=== PATIENT | male | born 1985 | race Caucasian/White ===

== ENCOUNTER → 2019-12-01 | Outpatient (CLI) | payer OTHER ==
[2019-12-01 13:17] LABS: BASO # 0.1 x10^3/uL (0.0-0.2); BASO % 1 % (0-3); EOS # 0.2 x10^3/uL (0.0-0.7); EOS % 3 % (0-3); HEMATOCRIT 41.9 % (39.0-53.0); LYMPH # 2.5 x10^3/uL (1.0-4.8); LYMPH % 33 % (24-48); MEAN CORPUSCULAR HEMOGLOBIN 31 pg (25-35); MEAN CORPUSCULAR HGB CONC 33 g/dL (31-37); MEAN CORPUSCULAR VOLUME 91 fL (79-100); MONO # 0.6 x10^3/uL (0.0-1.1); MONO % 8 % (0-9); NEUT # 4.2 x10^3uL (1.8-7.7); NEUT % 56 % (31-73); PLATELET COUNT 291 x10^3/uL (140-400); RED CELL DISTRIBUTION WIDTH 13.9 % (11.5-14.5); WHITE BLOOD COUNT 7.6 x10^3/uL (4.0-11.0)
[2019-12-01 13:32] LABS: ALBUMIN 4.2 g/dL (3.4-5.0); ALBUMIN/GLOBULIN RATIO 1.4 (1.0-1.7); CREATININE 1.2 mg/dL (0.7-1.3); GFR 68.5; POTASSIUM 4.1 mmol/L (3.5-5.1); TOTAL BILIRUBIN 0.6 mg/dL (0.2-1.0); TOTAL PROTEIN 7.3 g/dL (6.4-8.2)
== END | disposition home or self-care (01) ==
LOC: EEVIPCON 12:59 → SPEC 12:59
DX: Z00.00 Encounter for general adult medical examination without abnormal findings (principal); E78.1 Pure hyperglyceridemia
CPT/HCPCS: 36415; 80053; 83880; 85025

== ENCOUNTER 2020-08-10 02:45 | Observation (INO) | payer OTHER ==
[~2020-08-10] VITALS: Ht 175.3 cm; Wt 83.4 kg
[2020-08-10] MEDS ORDERED: ONDANSETRON PF 4 MG/2 ML VIAL. ONE (02:49)
[2020-08-10] MEDS ORDERED: IV NORMAL SALINE 1,000ML 1,000 ML IV ONE (03:00)
[2020-08-10] MEDS ORDERED: FAMOTIDINE 20 MG/2 ML VIAL IVP ONE (03:00)
[2020-08-10] MEDS ORDERED: KETOROLAC 15 MG/ML VIAL. IVP ONE (03:00)
[2020-08-10] MEDS ORDERED: ONDANSETRON PF 4 MG/2 ML VIAL. IVP ONE ×3 (03:00→07:00)
[2020-08-10] MEDS ORDERED: HYOSCYAMINE 0.125 MG TAB.RAPDIS PO ONE (03:00)
--- NOTE | 2020-08-10 03:16 | EKG ---
[address] [address] Test Date: 2020-08-10 Test Time: 03:07:50 Pat Name: ROM KIDD Department: Room: Gender: M [employer] Inspector: DORIAN : 1985 Requested By: AKUA REYES Order Number: [id number] Reading MD: Measurements Intervals [place] Rate: 61 P: 25 TX: 166 QRS: 50 QRSD: 92 T: -7 QT: 400 QTc: 404 Interpretive Statements SINUS RHYTHM NORMAL ECG RI6.02 No previous ECG available for comparison
[2020-08-10] MEDS ORDERED: IOHEXOL 300 MG/ML 75 ML VIAL. ONE (03:35)
[2020-08-10] MEDS ORDERED: IOHEXOL 300 MG/ML 75 ML VIAL. IV ONE (03:45)
[2020-08-10] MEDS ORDERED: CONTRAST GIVEN. MC PRN (03:45)
[2020-08-10 03:50] LABS: BASO % 0 % (0-3); EOS % 0 % (0-3); HEMATOCRIT 43.2 % (39.0-53.0); HEMOGLOBIN 14.9 g/dL (13.0-17.5); LYMPH # 1.1 x10^3/uL (1.0-4.8); LYMPH % 10 % (24-48); MEAN CORPUSCULAR HEMOGLOBIN 31 pg (25-35); MEAN CORPUSCULAR HGB CONC 34 g/dL (31-37); MEAN CORPUSCULAR VOLUME 90 fL (79-100); MONO # 0.3 x10^3/uL (0.0-1.1); MONO % 3 % (0-9); NEUT # 9.8 x10^3uL (1.8-7.7); NEUT % 87 % (31-73); PLATELET COUNT 350 x10^3/uL (140-400); RED BLOOD COUNT 4.81 x10^6/uL (4.30-5.70); RED CELL DISTRIBUTION WIDTH 13.1 % (11.5-14.5); WHITE BLOOD COUNT 11.3 x10^3/uL (4.0-11.0)
[2020-08-10 03:57] LABS: BACTERIA,URINE 0 /HPF (0-FEW); BILIRUBIN,URINE NEG (NEG); CLARITY,URINE CLEAR; COLOR,URINE YELLOW; GLUCOSE,URINE NEG (NEG); NITRITE,URINE NEG (NEG); RBC,URINE OCC /HPF (0-2); SQUAMOUS EPITHELIAL CELL,UR OCC /LPF; UROBILINOGEN,URINE 0.2 mg/dL (0.2 mg/dL); WBC,URINE OCC /HPF (0-4)
[2020-08-10 04:00] LABS: CALCIUM 9.4 mg/dL (8.5-10.1); CREATININE 0.8 mg/dL (0.7-1.3); GFR 108.8
--- NOTE | 2020-08-10 04:20 | RAD ---
CT SCAN OF THE ABDOMEN AND PELVIS WITH IV CONTRAST. History: Abdominal pain, history of appendectomy Comparison:None. Procedure: Contiguous axial images of the abdomen and pelvis were performed after the administration of 75 cc o f Omni 300 IV contrast. Oral contrast: No. Findings: The gallbladder appears normal. There is mild wall thickening of the colon without surrounding inflam mation. Liver: Unremarkable Spleen: Unremarkable Pancreas: Unremarkable Adrenal Glands: Unremarkable Kidneys: Unremarkable There is no mass or lymphadenopathy. There is no free air. There is no free fluid. The urinary bladder appears normal. Impression: Pancolitis could be infectious such as pseudomembranous colitis or could be inflammatory such as ulce rative colitis. There is no diverticulitis. There is no air in the wall to suggest ischemic colitis. End impression PQRS Compliance Statement: One or more of the following individualized dose reduction techniques were utilized for this examinat ion: 1. Automated exposure control 2. Adjustment of the mA and/or kV according to patient size 3. Use of iterative reconstruction technique Electronically signed by: Edgar Covarrubias III, MD (08/10/2020 4:18 AM) [facility]
[2020-08-10 04:25] LABS: ALBUMIN 4.7 g/dL (3.4-5.0); ALBUMIN/GLOBULIN RATIO 1.5 (1.0-1.7); TOTAL BILIRUBIN 0.2 mg/dL (0.2-1.0); TOTAL PROTEIN 7.9 g/dL (6.4-8.2)
[2020-08-10] MEDS ORDERED: IV NORMAL SALINE 50ML 50 ML ONE (04:50)
[2020-08-10] MEDS ORDERED: cefTRIAXone SODIUM 1 GM VIAL ONE (04:50)
--- NOTE | 2020-08-10 05:08 | PHYS DOC ---
Past History Past Medical History: No Pertinent History Past Surgical History: Appendectomy Smoking: Non-smoker Alcohol Use: None Drug Use: None General Adult EDM: Chief Complaint: ABDOMINAL PAIN HPI: HPI: 35-year-old male presents with generalized abdominal pain with associated nausea and vomiting that started yesterday. Patient reports has vomited multiple times. Patient is a inmate [facility]. Provider at the facility became concerned that patient with intractable nausea and vomiting and significant abdominal pain and therefore sent him to the ER for further evaluation and treatment. Patient also reports diarrhea. Patient denies known sick contacts. Denies recent antibiotic therapy. Denies history of known irritable bowel disease. Denies trauma. Review of Systems: Review of Systems: Constitutional: Denies fever or chills Eyes: Denies redness or eye pain HENT: Denies nasal congestion or sore throat Respiratory: Denies cough or shortness of breath Cardiovascular: Denies chest pain or palpitations GI: Reports diffuse abdominal pain, nausea, vomiting, and diarrhea : Denies dysuria or hematuria Musculoskeletal: Reports back pain; denies joint pain Integument: Denies rash or skin lesions Neurologic: Denies headache, focal weakness or sensory changes Complete systems were reviewed and found to be within normal limits, except as documented in this note. Current Medications: Current Meds: Current Medications Medications (Trade) Dose Ordered Sig/Willis Start Time Stop Time Status Last Admin Dose Admin Ceftriaxone Sodium 1 gm/ Sodium Chloride 50 ml @ 100 mls/hr 1X ONCE 08/10/20 04:45 08/10/20 05:14 08/10/20 05:00 100 MLS/HR Ceftriaxone Sodium (Rocephin) 1 gm STK-MED ONCE 08/10/20 04:50 08/10/20 04:50 DC Famotidine (Pepcid Vial) 20 mg 1X ONCE 08/10/20 03:00 08/10/20 03:08 DC 08/10/20 03:30 20 MG Fentanyl Citrate (Fentanyl 2ml Vial) 50 mcg 1X ONCE 08/10/20 05:15 08/10/20 05:16 Hyoscyamine (Anaspaz) 0.125 mg 1X ONCE 08/10/20 03:00 08/10/20 03:08 DC 08/10/20 03:30 0.125 MG Info (Do NOT chart on this entry -- for MONITORING) 1 each PRN DAILY PRN 08/10/20 03:45 08/12/20 03:44 Iohexol (Omnipaque 300 Mg/ml) 75 ml STK-MED ONCE 08/10/20 03:35 08/10/20 03:36 DC Ketorolac Tromethamine (Toradol 15mg Vial) 15 mg 1X ONCE 08/10/20 03:00 08/10/20 03:08 DC 08/10/20 03:30 15 MG Metronidazole 100 ml @ 100 mls/hr 1X ONCE 08/10/20 04:45 08/10/20 05:44 Ondansetron HCl (Zofran) 4 mg 1X ONCE 08/10/20 05:15 08/10/20 05:16 Sodium Chloride 50 ml @ As Directed STK-MED ONCE 08/10/20 04:50 08/10/20 04:50 DC Allergies: Allergies: Allergies Coded Allergies Type Severity Reaction Last Updated Verified No Known Drug Allergies 08/10/20 No Physical Exam: PE: Constitutional: Well developed, well nourished, uncomfortable, non-toxic appearance HENT: Normocephalic, atraumatic, mucous membranes tacky Eyes: Conjunctiva normal, no discharge Neck: Normal range of motion, no tenderness, supple Lungs & Thorax: No respiratory distress, equal chest rise and fall Abdomen: Soft, diffuse tenderness, mild guarding, mild distention Skin: Warm, dry, no erythema, no rash Back: No tenderness, no CVA tenderness Extremities: No tenderness, ROM intact, no edema Neurologic: Alert and oriented X 3, no focal deficits noted Psychologic: Affect normal, judgment normal Current Patient Data: Labs: Laboratory Tests Test 08/10/20 03:15 08/10/20 03:20 Urine Collection Type Unknown Urine Color Yellow Urine Clarity Clear Urine pH 8.5 Urine Specific Cranberry 1.020 Urine Protein Neg (NEG-TRACE) Urine Glucose (UA) Neg mg/dL (NEG) Urine Ketones (Stick) Neg mg/dL (NEG) Urine Blood Trace (NEG) Urine Nitrite Neg (NEG) Urine Bilirubin Neg (NEG) Urine Urobilinogen Dipstick 0.2 mg/dL (0.2 mg/dL) Urine Leukocyte Esterase Neg (NEG) Urine RBC Occ /HPF (0-2) Urine WBC Occ /HPF (0-4) Urine Squamous Epithelial Cells Occ /LPF Urine Bacteria 0 /HPF (0-FEW) White Blood Count 11.3 x10^3/uL (4.0-11.0) H Red Blood Count 4.81 x10^6/uL (4.30-5.70) Hemoglobin 14.9 g/dL (13.0-17.5) Hematocrit 43.2 % (39.0-53.0) Mean Corpuscular Volume 90 fL (79-100) Mean Corpuscular Hemoglobin 31 pg (25-35) Mean Corpuscular Hemoglobin Concent 34 g/dL (31-37) Red Cell Distribution Width 13.1 % (11.5-14.5) Platelet Count 350 x10^3/uL (140-400) Neutrophils (%) (Auto) 87 % (31-73) H Lymphocytes (%) (Auto) 10 % (24-48) L Monocytes (%) (Auto) 3 % (0-9) Eosinophils (%) (Auto) 0 % (0-3) Basophils (%) (Auto) 0 % (0-3) Neutrophils # (Auto) 9.8 x10^3uL (1.8-7.7) H Lymphocytes # (Auto) 1.1 x10^3/uL (1.0-4.8) Monocytes # (Auto) 0.3 x10^3/uL (0.0-1.1) Eosinophils # (Auto) 0.0 x10^3/uL (0.0-0.7) Basophils # (Auto) 0.0 x10^3/uL (0.0-0.2) Sodium Level 141 mmol/L (136-145) Potassium Level 4.0 mmol/L (3.5-5.1) Chloride Level 102 mmol/L (98-107) Carbon Dioxide Level 31 mmol/L (21-32) Anion Gap 8 (6-14) Blood Urea Nitrogen 8 mg/dL (8-26) Creatinine 0.8 mg/dL (0.7-1.3) Estimated GFR (Cockcroft-Gault) 108.8 BUN/Creatinine Ratio 10 (6-20) Glucose Level 137 mg/dL (70-99) H Lactic Acid Level 2.8 mmol/L (0.4-2.0) H Calcium Level 9.4 mg/dL (8.5-10.1) Total Bilirubin 0.2 mg/dL (0.2-1.0) Aspartate Amino Transferase (AST) 19 U/L (15-37) Alanine Aminotransferase (ALT) 28 U/L (16-63) Alkaline Phosphatase 59 U/L (46-116) Creatine Kinase 179 U/L (39-308) Creatine Kinase MB (Mass) 1.8 ng/mL (0.0-3.6) Creatine Kinase MB Relative Index 1.0 % (0-4) Troponin I Quantitative < 0.017 ng/mL (0-0.055) Total Protein 7.9 g/dL (6.4-8.2) Albumin 4.7 g/dL (3.4-5.0) Albumin/Globulin Ratio 1.5 (1.0-1.7) Lipase 104 U/L (73-393) Vital Signs: Vital Signs Date Time Temp Pulse Resp B/P (MAP) Pulse Ox O2 Delivery O2 Flow Rate FiO2 08/10/20 02:50 98.1 61 18 158/87 (110) 100 Room Air EKG: EKG: @0307 NSR at 61bpm, NO ST elevation, QRS 92ms, QT/QTc 400ms, QT/QTc 404ms Radiology/Procedures: Radiology/Procedures: PROCEDURE: CT ABD PELV W/ IV CONTRST ONLY CT SCAN OF THE ABDOMEN AND PELVIS WITH IV CONTRAST. History: Abdominal pain, history of appendectomy Comparison:None. Procedure: Contiguous axial images of the abdomen and pelvis were performed after the administration of 75 cc of Omni 300 IV contrast. Oral contrast: No. Findings: The gallbladder appears normal. There is mild wall thickening of the colon without surrounding inflammation. Liver: Unremarkable Spleen: Unremarkable Pancreas: Unremarkable Adrenal Glands: Unremarkable Kidneys: Unremarkable There is no mass or lymphadenopathy. There is no free air. There is no free fluid. The urinary bladder appears normal. Impression: Pancolitis could be infectious such as pseudomembranous colitis or could be inflammatory such as ulcerative colitis. There is no diverticulitis. There is no air in the wall to suggest ischemic colitis. End impression PQRS Compliance Statement: One or more of the following individualized dose reduction techniques were utilized for this examination: 1. Automated exposure control 2. Adjustment of the mA and/or kV according to patient size 3. Use of iterative reconstruction technique Electronically signed by: Edgar Covarrubias III, MD (08/10/2020 4:18 AM) [facility] Heart Score: C/O Chest Pain: N/A Course & Med Decision Making: Course & Med Decision Making Pertinent Labs and Imaging studies reviewed. (See chart for details) Inmate from [facility] presents with diffuse abdominal pain with associated nausea/vomiting/diarrhea. No known sick contacts per medical personnel from the facility. Patient with some clinical signs of dehydration. Labs obtained and posted to chart. WBC slightly elevated. Lactic acid also elevated. CT abdomen/pelvis with findings consistent for pancolitis. Stool studies pending. Empiric antibiotics initiated. IV fluid hydration given. Patient requiring admission for further evaluation and treatment. Discussed with Dr. Ortega (hospitalist) who is in agreement with admission. Request initiation of p.o. vancomycin. Orders placed. Discussed findings and plan with patient, who acknowledges understanding and agreement. Bassam Disclaimer: Bassam Disclaimer: This electronic medical record was generated, in whole or in part, using a voice recognition dictation system. Departure Departure: Impression: Primary Impression: Pancolitis Additional Impressions: Intractable nausea and vomiting Lactic acidosis Disposition: ADMITTED INPATIENT Admitting Physician: Flaco Peoples Condition: STABLE Referrals: PCP,STEPHANIE (PCP) AKUA REYES DO Aug 10, 2020 05:07
[2020-08-10] MEDS ORDERED: IV NORMAL SALINE 1,000ML 1,000 ML IV SCH (05:15)
[2020-08-10] MEDS ORDERED: ONDANSETRON PF 4 MG/2 ML VIAL. IVP PRN (05:15)
[2020-08-10 08:32] VITALS: BP 128/75
[2020-08-10] MEDS ORDERED: VANCOMYCIN 125 MG/2.5 ML ORAL SOLUTION. PO SCH (09:00)
--- NOTE | 2020-08-10 09:31 | HP ---
ADMIT DATE: 08/10/2020 ATTENDING PHYSICIAN: Dr. Sharma. CHIEF COMPLAINT: Nausea and vomiting. HISTORY OF PRESENT ILLNESS: The patient is a 35-year-old gentleman, current inmate at [facility]. He has had new onset of nausea, vomiting, and abdominal pain, fairly nonspecific. No recent antibiotic use. He had a CT done in the ED, which showed very mild thickening of the colon wall. Definitely no surgical abdomen. No distention or bowel obstruction. It was thought that he may have C. diff, but he has not had any antibiotic therapy. He was given some Flagyl intravenously. Oral vancomycin and admitted for observation. I saw him later in the morning of admission. PAST MEDICAL HISTORY: Unremarkable for any chronic illnesses. No inflammatory bowel disease or Crohn's disease. PAST SURGICAL HISTORY: Appendectomy. ALLERGIES: He has no known drug allergies. CURRENT MEDICATIONS: None. SOCIAL HISTORY: He is a nonsmoker, nondrinker. FAMILY HISTORY: Noncontributory. REVIEW OF SYSTEMS: Significant for 1-day history of nausea, vomiting. No chills, fevers, or COVID exposure. No hematemesis. He has not had any stool since been here and unfortunately Clostridium difficile toxin ordered has not been sent because there is no liquid stool specimen. PHYSICAL EXAMINATION: GENERAL: When I saw him, this is a pleasant young male. INITIAL VITAL SIGNS: Showed a blood pressure of 149/52. He was afebrile with a temperature 98.7 degrees Fahrenheit, pulse is 69 and regular, oxygen saturation 100% on room air. HEENT: Head is without trauma. Pupils are reactive. Sclerae nonicteric. Oropharynx is clear. NECK: Supple, no bruits. LUNGS: Clear. CARDIOVASCULAR: Showed regular heart tones. No gallops. ABDOMEN: Soft, no guarding, rebound tenderness. Normoactive bowel sounds. There are no masses palpated. EXTREMITIES: Show no cyanosis or edema. NEUROLOGIC: Focally intact. SKIN: Warm and dry. PERTINENT LABORATORY STUDIES: Hemoglobin is 14.9 g/dL with a white count of 11,300. Electrolytes all within normal range. Nonfasting blood sugar 130. Cardiac enzymes negative. Liver panel entirely unremarkable. Imaging studies of the abdomen and pelvis showed very mild thickening of the colon without any surgical obstruction or surgical abdomen. ASSESSMENT: 1. A 35-year-old gentleman with probable self-limiting gastroenteritis, improving. 2. I doubt that he has Clostridium difficile toxin, although initially it sounded like he had a specimen ordered, but he has not been able to give us a stool specimen. PLAN: 1. Observation status. 2. Pain and nausea control. 3. Gentle IV hydration. 4. Empiric Flagyl and vancomycin pending C. diff specimen if it is available. JANETTE SHARMA MD DR: CELSA/zeny JOB#: [id number] / [id number]
--- NOTE | 2020-08-10 10:15 | DS ---
DATE OF DISCHARGE: 08/10/2020 ATTENDING PHYSICIAN: Dr. Sharma. FINAL DISCHARGE DIAGNOSES: 1. Self-limiting gastroenteritis, improving. 2. Mild colitis seen on CT scan. 3. Unlikely Clostridium difficile toxin as he has not had any diarrhea here. 4. Nausea, resolved. HISTORY OF PRESENT ILLNESS: The patient is a 35-year-old gentleman, currently an inmate at [facility]. He has had a 2-day history of nausea, vomiting and supposedly some diarrhea earlier, but he has not had any since he has been here. He was sent here for further treatment and evaluation. PHYSICAL EXAMINATION: Please see my dictated note. PERTINENT LABORATORY AND X-RAY STUDIES: Imaging studies showed a very mild colitis, no evidence of a surgical abdomen or obstruction. Hemoglobin was 14.9 g/dL, white count 11,300. Electrolytes within normal range. Cardiac enzymes are negative. Transaminases and liver panel all within normal range. COURSE IN THE HOSPITAL: The patient had gentle IV hydration, empiric Flagyl and oral vancomycin. Symptoms improved. Diet was increased to full liquids. He had no further symptoms. During the course of the hospital, he had no diarrhea specimen to sent for Clostridium difficile toxin. Therefore, I seriously doubt that this is Clostridium difficile colitis. I spoke with Dr. Thomas at the [facility]. We are going to send him back with a diagnosis of a self-limiting gastroenteritis. No antibiotic therapy at this time. He is stable from a medical standpoint. JANETTE SHARMA MD DR: CELSA/zeny JOB#: [id number] / [id number]
[2020-08-10 11:43] VITALS: BP 114/76
== END 2020-08-10 12:00 | disposition home or self-care (01) ==
LOC: EEVIPCON 02:45 → ER 02:45 → ICU 05:09 → INTOOBSV 05:09
PROVIDERS: ADMIT Hospitalist; ATTEND Hospitalist
DX: K52.9 Noninfective gastroenteritis and colitis, unspecified (principal); K51.00 Ulcerative (chronic) pancolitis without complications; B96.89 Other specified bacterial agents as the cause of diseases classified elsewhere; E87.2 Acidosis; Z90.49 Acquired absence of other specified parts of digestive tract
CPT/HCPCS: 36415; 74177; 80053; 81001; 82553; 83605; 83690; 84484; 85025; 93005; 96361; 96365; 96375; 96376; 99285; G0378; J0696; J1885; J2405; J3010; J3490; J7030; Q9967; 96367; G0379